=== PATIENT | female | born 1955 | race Caucasian/White ===

== ENCOUNTER → 2019-04-28 | Outpatient (CLI) | payer BC ==
[~2019-04-28] MED LIST: FOLI-68 PO; HYDR200T42; LEVO-85 PO; LOR5/325 PO; METH2.5T43 PO; OXYC-865 PO; OXYC-869 PO; PRE5 PO
== END ==
LOC: LAB 08:18
PROVIDERS: ATTEND Internal Medicine
DX: I27.20 Pulmonary hypertension, unspecified (principal); I35.1 Nonrheumatic aortic (valve) insufficiency
CPT/HCPCS: 36415; 82040; 82247; 82310; 82374; 82435; 82465; 82565; 82947; 83718; 84075; 84132; 84155; 84295; 84450; 84460; 84478; 84520